=== PATIENT | male | born 1960 | race Caucasian/White ===

== ENCOUNTER 2021-02-06 16:12 | Inpatient (IN) | payer BC, OTHER ==
[~2021-02-06] VITALS: Ht 185.4 cm; Wt 96.4 kg
--- NOTE | 2021-02-06 16:14 | NUR ---
code cardiac @ 1600 pg cards @ 4223
--- NOTE | 2021-02-06 16:20 | NUR ---
[place] [facility] [place] sternal CP which started this am. Patient's symptoms became worse approx 2 hours ago. Per EMS, patient became diaphoretic approx 10 min NURSE ORTHO. En route, EMS admin 324 ASA, Afrin, Fentanyl, Zofran, and initiated a Nitro infusion at 20mcg. Patient is diaphoretic, SOB, and nauseous. C/o sternal CP 4/10 pain. Respirations even and patient obviously SOB.
[2021-02-06 16:28] LABS: BASOPHILS % (AUTO) 0 % (0-1); EOSINOPHILS % (AUTO) 0 % (1-7); LYMPHOCYTES % (AUTO) 16 % (22-44); MEAN CORPUSCULAR HEMOGLOBIN 33.5 pg (27.5-34.5); MEAN CORPUSCULAR HGB CONC 35.3 g/dL (33.2-36.2); MEAN PLATELET VOLUME 7.4 fL (7.4-10.4); MONOCYTES % (AUTO) 9 % (2-9); NEUTROPHILS % (AUTO) 74 % (42-75); PLATELET COUNT 293 x10^3/uL (130-400); RED BLOOD COUNT 4.56 x10^6/uL (4.38-5.82); RED CELL DISTRIBUTION WIDTH 12.8 % (9.4-14.8)
[2021-02-06] MEDS ORDERED: ATORVASTATIN 80 MG TABLET PO ONE (16:30)
[2021-02-06] MEDS ORDERED: BIVALIRUDIN 250 MG ONE ×2 (16:37→17:55)
[2021-02-06] MEDS ORDERED: MIDAZOLAM 1 MG/ML, 5ML ONE (16:37)
[2021-02-06] MEDS ORDERED: LIDOCAINE 2%, 20ML ONE (16:37)
[2021-02-06] MEDS ORDERED: FENTANYL PF 100 MCG/2ML ONE (16:37)
[2021-02-06] MEDS ORDERED: NITROGLYCERIN 5 MG/ML, 10ML ONE (16:37)
[2021-02-06] MEDS ORDERED: VERAPAMIL 2.5 MG/ML, 2ML ONE (16:37)
[2021-02-06] MEDS ORDERED: TICAGRELOR 90 MG TABLET ONE (16:37)
[2021-02-06] MEDS ORDERED: HEPARIN 1,000 UNITS/ML, 10ML ONE (16:37)
--- NOTE | 2021-02-06 16:40 | NUR ---
Patient's pain decreasing; 2/10. Patient is no longer diaphoretic and WOB decreased.
[2021-02-06 16:41] LABS: INTERNATIONAL NORMALIZED RATIO 1.07 (0.93-1.1); PROTHROMBIN TIME 11.4 Seconds (9.6-11.5)
[2021-02-06 16:45] LABS: TROPONIN I < 0.015 ng/mL (0.000-0.045)
--- NOTE | 2021-02-06 16:51 | NUR ---
Patient transferred to catheter builder.
[2021-02-06] MEDS ORDERED: ATORVASTATIN 80 MG TABLET ONE (16:58)
[2021-02-06] MEDS ORDERED: LABETALOL 5MG/ML, 20ML IVPush PRN (17:00)
[2021-02-06] MEDS ORDERED: MORPHINE SULFATE 4 MG/ML, 1ML IVPush PRN (17:00)
[2021-02-06] MEDS ORDERED: NITROGLYCERIN 0.4 MG BOTTLE (25 TABS) SL PRN (17:00)
[2021-02-06] MEDS ORDERED: ENALAPRILAT 1.25 MG/ML, 2ML IVPush PRN (17:00)
[2021-02-06] MEDS ORDERED: POTASSIUM CHLORIDE 20 MEQ TAB.ER.PRT PO ONE (17:00)
[2021-02-06] MEDS ORDERED: ONDANSETRON 2MG/ML, 2ML IVPush PRN (17:00)
[2021-02-06] MEDS ORDERED: POLYETHYLENE GLYCOL 17 GM PACKET PO PRN (17:00)
[2021-02-06] MEDS ORDERED: BISACODYL 10 MG SUPP PR PRN (17:00)
[2021-02-06] MEDS ORDERED: OXYcodone IR 5MG TABLET PO PRN (17:00)
[2021-02-06] MEDS ORDERED: ATROPINE SYRINGE 0.1 MG/ML, 10ML ONE (17:21)
[2021-02-06] MEDS ORDERED: ADENOSINE 6 MG/2 ML ONE (17:56)
[2021-02-06] MEDS: ATORVASTATIN 80 MG TABLET PO SCH (20:28)
[2021-02-06] MEDS: SODIUM CHLORIDE FLUSH 10ML SYR IVF SCH (20:29)
[2021-02-07 04:18] LABS: BASOPHILS % (AUTO) 0 % (0-1); EOSINOPHILS % (AUTO) 0 % (1-7); LYMPHOCYTES % (AUTO) 12 % (22-44); MEAN CORPUSCULAR HEMOGLOBIN 34.2 pg (27.5-34.5); MEAN CORPUSCULAR HGB CONC 35.5 g/dL (33.2-36.2); MEAN PLATELET VOLUME 6.9 fL (7.4-10.4); MONOCYTES % (AUTO) 8 % (2-9); NEUTROPHILS % (AUTO) 79 % (42-75); PLATELET COUNT 233 x10^3/uL (130-400); RED BLOOD COUNT 3.98 x10^6/uL (4.38-5.82)
[2021-02-07 04:30] LABS: ALANINE AMINOTRANSFERASE 49 U/L (12-78); ALBUMIN 3.7 g/dL (3.4-5.0); ANION GAP 9 mmol/L (5-15); CALCIUM 8.5 mg/dL (8.5-10.1); CHLORIDE 108 mmol/L (98-107)
[2021-02-07 04:33] LABS: ALKALINE PHOSPHATASE 38 U/L (45-117); BILIRUBIN,TOTAL 0.8 mg/dL (0.2-1.0); CHOL/HDL RATIO 5.6; CHOLESTEROL, TOTAL 195 mg/dL (140-239); CREATININE 0.89 mg/dL (0.7-1.3); HDL CHOL % 18 % (26-37); HDL CHOLESTEROL (DIRECT) 35 mg/dL (40-60); LDL CHOLESTEROL,CALCULATED 128 mg/dL (54-169); LDL/HDL RATIO 3.7 (0.5-3.0); TOTAL PROTEIN 6.6 g/dL (6.4-8.2); TRIGLYCERIDES 160 mg/dL (50-200); VLDL CHOLESTEROL 32 mg/dL (0-25)
[2021-02-07] MEDS: ASPIRIN 81 MG TABLET EC PO SCH (06:00)
[2021-02-07] MEDS: SENNA/DOCUSATE TABLET PO SCH (08:11)
[2021-02-07] MEDS: TICAGRELOR 90 MG TABLET PO SCH ×2 (08:11→20:18)
[2021-02-07] MEDS: SODIUM CHLORIDE FLUSH 10ML SYR IVF SCH ×2 (08:11→20:18)
[2021-02-07] MEDS: METOPROLOL SUCCINATE 25 MG TAB.ER.24H PO SCH (09:44)
[2021-02-07] MEDS ORDERED: ARTIFICIAL TEARS 15 DROP/ML BOTTLE EACHEYE PRN (10:30)
[2021-02-07 18:59] VITALS: BP 124/82
[2021-02-07] MEDS: ATORVASTATIN 80 MG TABLET PO SCH (20:18)
[2021-02-08] MEDS: ACETAMINOPHEN 325 MG TABLET PO PRN ×3 (01:05→20:41)
[2021-02-08 01:07] VITALS: BP 113/74
[2021-02-08 05:29] LABS: BASOPHILS % (AUTO) 0 % (0-1); EOSINOPHILS % (AUTO) 2 % (1-7); LYMPHOCYTES % (AUTO) 28 % (22-44); MEAN CORPUSCULAR HEMOGLOBIN 34.2 pg (27.5-34.5); MEAN CORPUSCULAR HGB CONC 35.3 g/dL (33.2-36.2); MEAN PLATELET VOLUME 7.3 fL (7.4-10.4); MONOCYTES % (AUTO) 9 % (2-9); NEUTROPHILS % (AUTO) 61 % (42-75); PLATELET COUNT 228 x10^3/uL (130-400); RED BLOOD COUNT 4.09 x10^6/uL (4.38-5.82); RED CELL DISTRIBUTION WIDTH 13.1 % (9.4-14.8)
[2021-02-08 05:45] LABS: CHLORIDE 106 mmol/L (98-107)
[2021-02-08] MEDS: METOPROLOL SUCCINATE 25 MG TAB.ER.24H PO SCH (05:49)
[2021-02-08] MEDS: ASPIRIN 81 MG TABLET EC PO SCH (05:49)
[2021-02-08 06:01] LABS: ALANINE AMINOTRANSFERASE 50 U/L (12-78); ALBUMIN 3.9 g/dL (3.4-5.0); ALKALINE PHOSPHATASE 42 U/L (45-117); ANION GAP 9 mmol/L (5-15); BILIRUBIN,TOTAL 0.9 mg/dL (0.2-1.0); CALCIUM 8.9 mg/dL (8.5-10.1); TOTAL PROTEIN 7.1 g/dL (6.4-8.2)
[2021-02-08 07:27] VITALS: BP 119/77
[2021-02-08] MEDS: SENNA/DOCUSATE TABLET PO SCH (07:28)
[2021-02-08] MEDS: TICAGRELOR 90 MG TABLET PO SCH ×2 (07:28→20:40)
[2021-02-08] MEDS: SODIUM CHLORIDE FLUSH 10ML SYR IVF SCH ×2 (07:28→20:41)
[2021-02-08 14:00] VITALS: BP 128/76
[2021-02-08 15:57] VITALS: BP 126/84
[2021-02-08] MEDS: LOSARTAN 25MG TABLET PO SCH (16:16)
[2021-02-08 18:28] VITALS: BP 111/72
[2021-02-08] MEDS: ATORVASTATIN 80 MG TABLET PO SCH (20:40)
[2021-02-09 00:21] VITALS: BP 104/66
[2021-02-09] MEDS: ASPIRIN 81 MG TABLET EC PO SCH (05:36)
[2021-02-09 05:37] VITALS: BP 111/72
[2021-02-09] MEDS ORDERED: METOPROLOL SUCCINATE 50 MG TAB.ER.24H PO SCH (06:00)
[2021-02-09 06:16] VITALS: BP 113/72
[2021-02-09 07:58] VITALS: BP 124/83
[2021-02-09] MEDS: SENNA/DOCUSATE TABLET PO SCH (08:00)
[2021-02-09] MEDS: LOSARTAN 25MG TABLET PO SCH (08:00)
[2021-02-09] MEDS: TICAGRELOR 90 MG TABLET PO SCH (08:00)
[2021-02-09] MEDS: SODIUM CHLORIDE FLUSH 10ML SYR IVF SCH (08:00)
[2021-02-09] MEDS ORDERED: BISA10SU4 PR (08:11)
[2021-02-09] MEDS ORDERED: LOSA25TA25 PO (08:11)
[2021-02-09] MEDS ORDERED: ASPI81TA45 PO (08:11)
[2021-02-09] MEDS ORDERED: ATOR-2 PO (08:11)
[2021-02-09] MEDS ORDERED: NITR0.4T28 SL (08:11)
[2021-02-09] MEDS ORDERED: METO-93 PO (08:11)
[2021-02-09] MEDS ORDERED: TICA90TA PO (08:11)
== END 2021-02-09 09:50 | disposition home or self-care (01) | DRG 247 ==
LOC: EDSEX 16:12 → EDBD 16:12 → ED 17:03 → EDIP 17:08 → CCU 19:14 → 5SO 02-07 17:44 → DCLOUNGE 02-09 09:33
PROVIDERS: ADMIT Internal Medicine; ATTEND Internal Medicine
PROC: 4A023N7 Measurement of Cardiac Sampling and Pressure, Left Heart, Percutaneous Approach (ICD-10-PCS; principal; 2021-02-06)
PROC: 027034Z Dilation of Coronary Artery, One Artery with Drug-eluting Intraluminal Device, Percutaneous Approach (ICD-10-PCS; 2021-02-06)
PROC: B2111ZZ Fluoroscopy of Multiple Coronary Arteries using Low Osmolar Contrast (ICD-10-PCS; 2021-02-06)
PROC: B240ZZ3 Ultrasonography of Single Coronary Artery, Intravascular (ICD-10-PCS; 2021-02-06)
DX: I21.9 Acute myocardial infarction, unspecified (principal); D68.69 Other thrombophilia; I25.110 Atherosclerotic heart disease of native coronary artery with unstable angina pectoris; D72.828 Other elevated white blood cell count; Z20.822 Contact with and (suspected) exposure to COVID-19; E78.5 Hyperlipidemia, unspecified; E87.6 Hypokalemia; K21.9 Gastro-esophageal reflux disease without esophagitis; D72.829 Elevated white blood cell count, unspecified; R94.31 Abnormal electrocardiogram [ECG] [EKG]; I77.819 Aortic ectasia, unspecified site; Z87.891 Personal history of nicotine dependence; Z90.49 Acquired absence of other specified parts of digestive tract; Z80.9 Family history of malignant neoplasm, unspecified; Z82.49 Family history of ischemic heart disease and other diseases of the circulatory system; Z95.1 Presence of aortocoronary bypass graft; Z91.018 Allergy to other foods
CPT/HCPCS: 36415; 92973; 92978; 93458; 99291; J3490; 71045; 80047; 80053; 80061; 83036; 83735; 84484; 85025; 85610; 85730; 87081; 87635; 93005; 93306; 93356; 93880; 99156; 99157; C1753; C1769; C1894; G0378; J0153; J0461; J0583; J1644; J2250; J3010; C1725; C1757; C1874; C1887; Q9967